=== PATIENT | female | born 1990 | race Caucasian/White ===

== ENCOUNTER 2016-06-09 13:01 | Emergency (ER) | payer SELFPAY ==
[~2016-06-09] VITALS: Ht 165.1 cm; Wt 69.7 kg
[2016-06-09 13:07] VITALS: BP 137/85
--- NOTE | 2016-06-09 13:32 | PHYS DOC ---
Past Medical History Past Medical History: Other Additional Past Medical Histor: acute heart murmur, genital warts Past Surgical History: Other Additional Past Surgical Histo: d&c Alcohol Use: Occasionally Drug Use: None Adult General Chief Complaint Chief Complaint: VAGINAL BLEEDING HPI HPI Patient is a 25 year old female who presents emergency Department today with complaint of a heavy than usual menstrual. It began last night. Patient states that overall, this is day 3 of her menstrual cycle. She reports fairly regular menstrual cycles. She states that she does not keep track of them but does not remember them being treated for regular. She reports that she did have a menstrual cycle last month. Patient states that she is sexually active. She has not done any home test prior to coming into the emergency room today. She reports increased pelvic cramping associated with the heavy bleeding. She reports passing some coarse sized clots or blood. She denies passage of any tissue. She denies any fevers or chills. She denies myalgias or arthralgias. She denies any history of problems with her reproductive tract. Patient denies vaginal discharge or dysuria. She denies any concerns for STDs at this time. Review of Systems Review of Systems Constitutional: Denies fever or chills [] Eyes: Denies change in visual acuity, redness, or eye pain [] HENT: Denies nasal congestion or sore throat [] Respiratory: Denies cough or shortness of breath [] Cardiovascular: No additional information not addressed in HPI [] GI: Denies abdominal pain, nausea, vomiting, bloody stools or diarrhea [] : Denies dysuria or hematuria [] Musculoskeletal: Denies back pain or joint pain [] Integument: Denies rash or skin lesions [] Neurologic: Denies headache, focal weakness or sensory changes [] Endocrine: Denies polyuria or polydipsia [] Current Medications Current Medications Current Medications Medications (Trade) Dose Ordered Sig/Tremaine Start Time Stop Time Status Last Admin Dose Admin Ketorolac Tromethamine (Toradol Im) 60 mg 1X ONCE 06/09/16 14:30 06/09/16 14:30 DC 06/09/16 14:28 60 MG Allergies Allergies Allergies Coded Allergies Type Severity Reaction Last Updated Verified No Known Drug Allergies 06/09/16 No Physical Exam Physical Exam Constitutional: Well developed, well nourished, no acute distress, non-toxic appearance. [] HENT: Normocephalic, atraumatic, bilateral external ears normal, oropharynx moist, no oral exudates, nose normal. [] Eyes: PERRLA, EOMI, conjunctiva normal, no discharge. [] Neck: Normal range of motion, no tenderness, supple, no stridor. [] Cardiovascular:Heart rate regular rhythm, no murmur [] Lungs & Thorax: Bilateral breath sounds clear to auscultation [] Abdomen: Patient's abdomen soft and nondistended. There are normoactive bowel sounds in all 4 quadrants. There is no palpable defect to the abdominal wall or pulsatile mass. Patient complains of mild tenderness to palpation to the suprapubic region. Skin: Warm, dry, no erythema, no rash. [] Back: No tenderness, no CVA tenderness. [] Extremities: No tenderness, no cyanosis, no clubbing, ROM intact, no edema. [] Neurologic: Alert and oriented X 3, normal motor function, normal sensory function, no focal deficits noted. [] Psychologic: Affect normal, judgement normal, mood normal. [] Current Patient Data Vital Signs Vital Signs Date Time Temp Pulse Resp B/P Pulse Ox O2 Delivery O2 Flow Rate FiO2 06/09/16 13:07 98.0 98 18 137/85 99 Room Air 98.0 Lab Values Laboratory Tests Test 06/09/16 13:35 Urine Color Yellow Urine Clarity Clear Urine pH 7.0 Urine Specific [place] 1.015 Urine Protein Negativemg/dL (NEG-TRACE) Urine Glucose (UA) Negativemg/dL (NEG) Urine Ketones (Stick) Negativemg/dL (NEG) Urine Blood Large (NEG) Urine Nitrite Negative (NEG) Urine Bilirubin Negative (NEG) Urine Urobilinogen Dipstick 0.2mg/dL (0.2 mg/dL) Urine Leukocyte Esterase Negative (NEG) Urine RBC 20-40/HPF (0-2) Urine WBC Occ/HPF (0-4) Urine Squamous Epithelial Cells Occ/LPF Urine Bacteria 0/HPF (0-FEW) EKG EKG [] Radiology/Procedures Radiology/Procedures [] Course & Med Decision Making Course & Med Decision Making Patient presents the emergency Department today with complaint of heavy vaginal bleeding/menstrual period that began within the past 24 hours and overall menstrual cycle that began 3 days ago. She has no history of genitourinary pathology. She is normotensive, not tachycardic and test is negative. Patient safely go home and follow up with a commodity manager to discuss her heavy menstrual bleeding. Judy Disclaimer Judy Disclaimer This electronic medical record was generated, in whole or in part, using a voice recognition dictation system. Departure Departure Impression: Primary Impression: Menorrhagia Disposition: HOME, SELF-CARE Condition: GOOD Patient Instructions: Menorrhagia, [id number] Additional Instructions: 1. test here today is negative. 2. Review the discharge instructions provided for self-care and reasons to return to the emergency department. 3. Take the medication as prescribed. 4. Call [phone] this afternoon or tomorrow morning to schedule follow-up appointment with a commodity manager. Scripts Ketorolac Tromethamine 10 Mg Tablet1 Tab PO TID #15 TAB Prov:ANDIE ABARCA 06/09/16 ANDIE ABARCA Jun 09, 2016 13:32
[2016-06-09 13:53] LABS: BILIRUBIN,URINE NEGATIVE (NEG); GLUCOSE,URINE NEGATIVE (NEG); NITRITE,URINE NEGATIVE (NEG); PROTEIN,URINE NEGATIVE (NEG-TRACE); UROBILINOGEN,URINE 0.2 mg/dL (0.2 mg/dL)
[2016-06-09] MEDS ORDERED: KETOROLAC TROMETHAMINE 60 MG/2 ML INJ. IM ONE ×2 (14:00→14:30)
[2016-06-09 14:10] LABS: RBC,URINE 20-40 /HPF (0-2); WBC,URINE OCC /HPF (0-4)
[2016-06-09 14:11] LABS: BACTERIA,URINE 0 /HPF (0-FEW); SQUAMOUS EPITHELIAL CELL,UR OCC /LPF
[2016-06-09] MEDS ORDERED: KETO10TA PO (14:13)
== END 2016-06-09 14:29 | disposition home or self-care (01) ==
LOC: ER 13:01
DX: N92.0 Excessive and frequent menstruation with regular cycle (principal)
CPT/HCPCS: 81001; 84703; 96372; 99284; J1885; 81025